=== PATIENT | male | born 1950 | race Caucasian/White ===

== ENCOUNTER 2017-01-12 15:26 | Emergency (ER) | payer OTHER ==
[~2017-01-12] VITALS: Ht 167.6 cm; Wt 81.6 kg
[~2017-01-12 15:26] MED LIST: FISH OIL 1,2001 EAC1 PO; MOBIC15 MG PO; OMEPRAZOLE40 M1 PO; PRAVASTATIN SOD40 MG PO; XANAX0.5 M1 PO
== END 2017-01-12 16:36 | disposition home or self-care (01) ==
LOC: CFTX 15:26 → CED 15:26 → CFTX 16:12
DX: S01.01XA Laceration without foreign body of scalp, initial encounter (principal); E78.5 Hyperlipidemia, unspecified; W01.0XXA Fall on same level from slipping, tripping and stumbling without subsequent striking against object, initial encounter; Y92.009 Unspecified place in unspecified non-institutional (private) residence as the place of occurrence of the external cause
CPT/HCPCS: 90715; 99283